=== PATIENT | male | born 1960 | race African-American/Black ===

== ENCOUNTER 2018-02-28 10:04 | Outpatient (CLI) | payer OTHER | END 2018-02-28 10:05 | disposition home or self-care (01) | LOC: BICRAD 10:04 | PROVIDERS: ATTEND Internal Medicine | DX: Z02.71 Encounter for disability determination (principal) | CPT/HCPCS: 71046 ==

== ENCOUNTER 2021-12-09 16:47 | Emergency (ER) | payer OTHER ==
[2021-12-09 17:23] LABS: Hemoglobin 14.6 g/dL (14.0-18.0); Mean Corpuscular HGB CONC 33.6 g/dL (32.0-36.0); Mean Corpuscular Hemoglobin 29.9 pg (27.0-31.0); Platelet Count 270 thou/uL (130-400); RBC Distribution Width 15.6 % (11.5-14.5); Red Blood Cell (RBC) Count 4.89 mill/uL (4.70-6.10); White Blood Cell (WBC) Count 3.3 thou/uL (4.8-10.8)
[2021-12-09 17:44] LABS: ALT (SGPT) 17 U/L (8-55); AST (SGOT) 12 U/L (5-34); Albumin 3.9 g/dL (3.5-5.0); Alkaline Phosphatase 79 U/L (40-110); Anion Gap 13 mmol/L (10-20); BUN (Urea Nitrogen) 17 mg/dL (8.4-25.7); Bilirubin, Total 0.5 mg/dL (0.2-1.2); Calc. Creatinine Clearance 0 mL/min (70-130); Calcium 9.2 mg/dL (7.8-10.44); Carbon Dioxide 27 mmol/L (22-29); Chloride 103 mmol/L (98-107); Globulin 3.4 g/dL (2.4-3.5); Glucose 114 mg/dL (70-105); Potassium 3.4 mmol/L (3.5-5.1); Protein, Total 7.3 g/dL (6.0-8.3); Sodium 140 mmol/L (136-145)
[2021-12-09 18:18] LABS: Eosinophils 6 % (0-10); Lymphocytes 56 % (21-51); MDiff Complete? YES; Monocytes 12 % (0-10); Neutrophil 22 % (42-75); Platelet Morphology Comment Appears Adequate; RBC Morphology Normal
[2021-12-09 18:58] LABS: CKMB 0.8 ng/mL (0-6.6)
[2021-12-09 21:12] LABS: Troponin I 0.366 ng/mL (< 0.028)
[2021-12-09] MEDS ORDERED: Aspirin Chewable 81 MG TAB ONE (21:15)
== END 2021-12-09 22:53 | disposition short-term general hospital (02) ==
LOC: ERS 16:47
DX: R55 Syncope and collapse (principal); R00.1 Bradycardia, unspecified; I48.92 Unspecified atrial flutter; I48.91 Unspecified atrial fibrillation; I10 Essential (primary) hypertension; E78.5 Hyperlipidemia, unspecified; E66.9 Obesity, unspecified; Z68.45 Body mass index [BMI] 70 or greater, adult; Z79.01 Long term (current) use of anticoagulants; Z79.82 Long term (current) use of aspirin; Z79.899 Other long term (current) drug therapy
CPT/HCPCS: 36415; 70450; 71045; 80053; 82553; 84484; 85025; 93005; 94760

== ENCOUNTER 2021-12-19 16:06 | Outpatient (CLI) | payer OTHER ==
[2021-12-19 16:58] LABS: Hemoglobin 14.8 g/dL (13.5-17.5); Mean Corpuscular HGB CONC 33.7 g/dL (32.0-36.0); Mean Corpuscular Hemoglobin 29.2 pg (27.0-33.0); Mean Corpuscular Volume 86.6 fl (81.2-95.1); Mean Platelet Volume 10.5 fl (7.4-10.4); Platelet Count 222 10x3/uL (150-450); RBC Distribution Width 14.6 % (11.5-14.5); Red Blood Cell (RBC) Count 5.07 10x6/uL (4.32-5.72); White Blood Cell (WBC) Count 3.3 10x3/uL (3.5-10.5)
[2021-12-19 17:22] LABS: Anion Gap 16 mmol/L (10-20); BUN (Urea Nitrogen) 18 mg/dL (8.4-25.7); Calc. Creatinine Clearance 0 mL/min (70-130); Calcium 9.6 mg/dL (7.8-10.44); Carbon Dioxide 26 mmol/L (22-29); Chloride 103 mmol/L (98-107); Glucose 89 mg/dL (70-105); Potassium 3.8 mmol/L (3.5-5.1); Sodium 141 mmol/L (136-145)
[2021-12-19 17:28] LABS: INR-International Normal Ratio 1.2
== END 2021-12-19 16:07 | disposition home or self-care (01) ==
LOC: LABBT 16:06
PROVIDERS: ATTEND Internal Medicine Cardiovascular Disease
DX: Z01.812 Encounter for preprocedural laboratory examination (principal); I48.19 Other persistent atrial fibrillation; Z20.822 Contact with and (suspected) exposure to COVID-19
CPT/HCPCS: 80048; 85027; 85610; U0003; U0005

== ENCOUNTER 2021-12-23 05:49 | Day surgery (SDC) | payer OTHER ==
[2021-12-19 10:21] VITALS: BMI 31.3
[2021-12-23] MEDS ORDERED: fentaNYL Citrate/PF 100 MCG/2 ML SYRINGE ONE ×2 (06:21→11:26)
[2021-12-23] MEDS ORDERED: Phenylephrine 10 MG/ML VIAL ONE (06:21)
[2021-12-23] MEDS ORDERED: Lidocaine 4% Topical Sol 50 ML BOT ONE (06:45)
[2021-12-23] MEDS ORDERED: Heparin 10,000 UNITS/ 10 ML VIAL ONE ×3 (06:47→08:39)
[2021-12-23] MEDS ORDERED: Protamine Sulfate 50 MG/5 ML VIAL ONE (06:47)
[2021-12-23] MEDS ORDERED: Heparin 25,000 units/D5W 500 ML ONE (06:47)
[2021-12-23] MEDS ORDERED: Lidocaine 1% PF 5 ML VIAL ONE (07:40)
[2021-12-23] MEDS ORDERED: PROPOFOL 200 MG/20 ML VIAL ONE (07:40)
[2021-12-23] MEDS ORDERED: PHENYLEPHRINE-NS 100 MCG/ML 10 ML SYRINGE ONE (07:40)
[2021-12-23] MEDS ORDERED: Dexamethasone 20 MG/5 ML VIAL ONE (07:40)
[2021-12-23] MEDS ORDERED: Ondansetron PF 4 MG/2 ML Vial ONE (07:40)
[2021-12-23] MEDS ORDERED: Rocuronium Bromide 10 MG/ML (10ML VIAL) ONE (07:40)
[2021-12-23] MEDS ORDERED: Glycopyrrolate 0.2 MG/ML 5 ML SYRINGE ONE (07:40)
== END 2021-12-23 15:09 | disposition home or self-care (01) ==
LOC: SDC 05:49
PROVIDERS: ATTEND Internal Medicine Cardiovascular Disease
PROC: B246ZZ4 Ultrasonography of Right and Left Heart, Transesophageal (ICD-10-PCS; principal; 2021-12-23)
PROC: 02583ZZ Destruction of Conduction Mechanism, Percutaneous Approach (ICD-10-PCS; principal; 2021-12-23)
PROC: 02K83ZZ Map Conduction Mechanism, Percutaneous Approach (ICD-10-PCS; principal; 2021-12-23)
DX: I48.19 Other persistent atrial fibrillation (principal); I48.3 Typical atrial flutter; I13.0 Hypertensive heart and chronic kidney disease with heart failure and stage 1 through stage 4 chronic kidney disease, or unspecified chronic kidney disease; N18.9 Chronic kidney disease, unspecified; I50.30 Unspecified diastolic (congestive) heart failure; I25.10 Atherosclerotic heart disease of native coronary artery without angina pectoris; E78.5 Hyperlipidemia, unspecified; G47.30 Sleep apnea, unspecified; K21.9 Gastro-esophageal reflux disease without esophagitis; Z79.01 Long term (current) use of anticoagulants; Z79.82 Long term (current) use of aspirin; Z79.899 Other long term (current) drug therapy; Z88.8 Allergy status to other drugs, medicaments and biological substances
CPT/HCPCS: 85347; 93005; 93312; 93613; 93622; 93656; 93657; 93662; C1730; C1731; C1732; C1759; C1894; C2630; J1100; J1644; J2370; J2405; J2704; J2720

== ENCOUNTER 2023-05-25 07:03 | Observation (INO) | payer OTHER ==
[2023-05-18 14:16] LABS: Hematocrit 45.3 % (38.8-50.0); Hemoglobin 15.1 g/dL (13.5-17.5); Mean Corpuscular HGB CONC 33.3 g/dL (32.0-36.0); Mean Corpuscular Hemoglobin 28.4 pg (27.0-33.0); Mean Corpuscular Volume 85.3 fl (81.2-95.1); Mean Platelet Volume 10.2 fl (7.4-10.4); Platelet Count 272 10x3/uL (150-450); RBC Distribution Width 13.3 % (11.5-14.5); Red Blood Cell (RBC) Count 5.31 10x6/uL (4.32-5.72); White Blood Cell (WBC) Count 3.6 10x3/uL (3.5-10.5)
[2023-05-18 14:22] LABS: Anion Gap 13 mmol/L (10-20); BUN (Urea Nitrogen) 18 mg/dL (8.4-25.7); Calc. Creatinine Clearance 39 mL/min (70-130); Calcium 8.9 mg/dL (7.8-10.44); Carbon Dioxide 27 mmol/L (22-29); Chloride 105 mmol/L (98-107); Estimated GFR 44; Glucose 95 mg/dL (70-105); Potassium 3.5 mmol/L (3.5-5.1); Sodium 141 mmol/L (136-145)
[2023-05-18 14:26] LABS: INR-International Normal Ratio 1.3; Prothrombin Time 13.5 sec (9.5-12.1)
[2023-05-25] MEDS ORDERED: Protamine Sulfate 50 MG/5 ML VIAL ONE (07:57)
[2023-05-25] MEDS ORDERED: Heparin 25,000 units/D5W 500 ML ONE (07:57)
[2023-05-25] MEDS ORDERED: Heparin 10,000 UNITS/ 10 ML VIAL ONE (07:57)
[2023-05-25] MEDS ORDERED: Dexamethasone 20 MG/5 ML VIAL ONE (08:53)
[2023-05-25] MEDS ORDERED: Lidocaine 1% PF 5 ML VIAL ONE (08:53)
[2023-05-25] MEDS ORDERED: Ondansetron PF 4 MG/2 ML Vial ONE ×2 (08:53→13:10)
[2023-05-25] MEDS ORDERED: PROPOFOL 200 MG/20 ML VIAL ONE (08:53)
[2023-05-25] MEDS ORDERED: Rocuronium Bromide 10 MG/ML (10ML VIAL) ONE (08:53)
[2023-05-25] MEDS ORDERED: fentaNYL 50 mcg/mL 1 mL Vial ONE ×3 (09:02→13:48)
[2023-05-25] MEDS ORDERED: Dehydrated Alcohol 99% 5 ML VIAL ONE (09:30)
[2023-05-25] MEDS ORDERED: Iopamidol 370 76% 100 ML VIAL ONE (10:00)
[2023-05-25] MEDS ORDERED: Labetalol HCl 100 MG/20 ML VIAL ONE (12:43)
[2023-05-25] MEDS ORDERED: Ondansetron HCl/PF 4 MG/2 ML Vial IVP PRN (12:45)
[2023-05-25] MEDS ORDERED: Promethazine HCl 25 MG/ML VIAL IM PRN (12:45)
[2023-05-25] MEDS ORDERED: Labetalol HCl 100 MG/20 ML VIAL SLOW IVP PRN (12:46)
[2023-05-25] MEDS ORDERED: hydrALAZINE 20 MG/ML VIAL ONE (13:07)
[2023-05-25] MEDS ORDERED: Acetaminophen 325 MG TAB PO PRN ×2 (13:30→19:15)
[2023-05-25] MEDS ORDERED: HYDROcodone/Acetaminophen 5/325 mg Tablet PO PRN ×4 (13:30→19:15)
[2023-05-25] MEDS ORDERED: cloNIDine 0.1 MG TAB ONE (13:36)
[2023-05-25] MEDS: cloNIDine 0.3 MG TAB PO SCH ×2 (13:38→20:15)
[2023-05-25] MEDS: Isosorbide Dinitrate 20 MG TAB PO SCH ×2 (14:21→20:14)
[2023-05-25] MEDS: NIFEdipine XL 90 MG ER.TAB PO SCH (15:43)
[2023-05-25] MEDS ORDERED: Midazolam HCl 2 mg/2 ml Vial ONE (17:04)
[2023-05-25] MEDS ORDERED: ALPRAZolam 0.25 MG TAB PO PRN (17:12)
[2023-05-25] MEDS ORDERED: Acetaminophen/Codeine 30-300mg Tablet PO PRN ×2 (19:15)
[2023-05-25 19:50] VITALS: BMI 30.8
[2023-05-25] MEDS: Apixaban 5 MG TAB PO SCH (20:14)
[2023-05-25] MEDS: Sodium Chloride 0.9% 1,000 ML IV SCH (20:15)
[2023-05-25] MEDS: Carvedilol 25 MG TAB PO SCH (20:15)
[2023-05-25] MEDS: Magnesium Oxide 400 MG TAB PO SCH (20:15)
[2023-05-25] MEDS ORDERED: cloNIDine 0.2 MG TAB PO SCH (21:00)
[2023-05-25] MEDS ORDERED: Atorvastatin Calcium 10 MG TAB PO SCH (21:00)
[2023-05-26] MEDS: Sodium Chloride 0.9% 1,000 ML IV SCH (04:56)
[2023-05-26 08:04] VITALS: BP 158/109; TEMP 98.5
[2023-05-26] MEDS: Carvedilol 25 MG TAB PO SCH (08:15)
[2023-05-26] MEDS: cloNIDine 0.3 MG TAB PO SCH (08:15)
[2023-05-26] MEDS: Magnesium Oxide 400 MG TAB PO SCH (08:15)
[2023-05-26] MEDS: Apixaban 5 MG TAB PO SCH (08:15)
[2023-05-26] MEDS: NIFEdipine XL 90 MG ER.TAB PO SCH (08:15)
[2023-05-26] MEDS: Isosorbide Dinitrate 20 MG TAB PO SCH (08:16)
[2023-05-26] MEDS ORDERED: Azelastine 137 MCG/NASAL Spray 30 ML NS SCH (09:00)
[2023-05-26] MEDS ORDERED: Aspirin 81 mg Enteric Coated Tablet PO SCH (09:00)
== END 2023-05-26 10:55 | disposition home or self-care (01) ==
LOC: SDC 07:03 → 2NO 12:48
PROVIDERS: ADMIT Internal Medicine Cardiovascular Disease; ATTEND Internal Medicine Cardiovascular Disease
PROC: 4A0234Z Measurement of Cardiac Electrical Activity, Percutaneous Approach (ICD-10-PCS; principal; 2023-05-25)
PROC: 02583ZZ Destruction of Conduction Mechanism, Percutaneous Approach (ICD-10-PCS; 2023-05-25)
DX: I48.4 Atypical atrial flutter (principal); I48.19 Other persistent atrial fibrillation; I48.0 Paroxysmal atrial fibrillation; I08.3 Combined rheumatic disorders of mitral, aortic and tricuspid valves; I13.0 Hypertensive heart and chronic kidney disease with heart failure and stage 1 through stage 4 chronic kidney disease, or unspecified chronic kidney disease; I50.32 Chronic diastolic (congestive) heart failure; N18.9 Chronic kidney disease, unspecified; E78.5 Hyperlipidemia, unspecified; Z88.8 Allergy status to other drugs, medicaments and biological substances; Z79.01 Long term (current) use of anticoagulants; Z79.899 Other long term (current) drug therapy; Z79.82 Long term (current) use of aspirin
CPT/HCPCS: 80048; 85027; 85610; 93005; 93010; 93312; 93655; 93656; 93657; 94660; C1731; C1732; C1760; C1769; C1887; C1894; C2630; J0360; J1100; J1644; J2250; J2405; J2704; J2720; J3010; J7050